=== PATIENT | male | born 1960 | race Caucasian/White ===

== ENCOUNTER → 2016-05-25 | Outpatient (CLI) | payer BC ==
[2016-05-25 14:37] LABS: Blood Urea Nitrogen 15 mg/dL (9-20); Non-African American GFR(MDRD) >60 (>60 ml/min/1.73 sqM)
== END | disposition home or self-care (01) ==
LOC: LABWHC1 14:01
PROVIDERS: ATTEND Psychiatry & Neurology Neurology
DX: R90.82 White matter disease, unspecified (principal)
CPT/HCPCS: 36415; 82565; 84520

== ENCOUNTER → 2016-05-26 | Outpatient (CLI) | payer BC ==
--- NOTE | 2016-05-26 08:10 | MR ---
EXAMINATION TYPE: MR brain wo/w con DATE OF EXAM: 05/26/2016 6:40 AM COMPARISON: NONE HISTORY: White matter changes, headache. CONTRAST: Performed utilizing 20 mL intravenous MultiHance gadolinium contrast. TECHNIQUE: Multiplanar, multisequence imaging of the brain is performed on a 3.0 Ramona magnet. Demye linating disease protocol with additional Sagittal Flair sequence was not performed. Study is perform ed within 24 hours of arrival to the hospital. FINDINGS: T2 White Matter Lesions Present : Yes Approximate Number of Lesions: Multiple scattered Locations Identified : Periventricular, subcortical, centrum semiovale Size of Largest Lesion(s): 1. 0.4 cm. Location: Subcortical right frontal lobe Sequence 501 Image 16 (axial). 2. 0.6 x 0.5 x 0.4 cm. Location: Right periventricular centrum semiovale Sequence 501 Image 24 (axi al) and Sequence 601 Image 99 (sagittal). Enhancing Lesion(s) Present: No Change from Prior: No prior study. Diffusion-weighted imaging is performed. No abnormal hyperintensity is present to suggest an acute i ntracranial infarct or acute ischemic change. There are no abnormal extra-axial fluid collections. The ventricular system and cisternal spaces are normal in size and appearance. The brain volume is age appropriate. The craniocervical junction tomasz ears within normal limits. Ventricles and sulci are prominent for the patient age. The dural venous s inuses appear patent. No abnormal enhancement is present on post contrast images. . There is a retention cyst within the ri ght maxillary sinus. Some mucosal thickening is within ethmoid air cells. Some mucosal thickening is in the right frontal sinus. Mastoid air cells are clear. The orbits appear unremarkable. IMPRESSION: 1. Multiple scattered deep white matter changes discussed above. No enhancement is evident. Differen tial would include microvascular ischemic change, multiple sclerosis, and other etiologies of gliosis . 2. Atrophy
== END | disposition home or self-care (01) ==
LOC: RADMRIMAIN 06:02
PROVIDERS: ATTEND Psychiatry & Neurology Neurology
DX: R90.89 Other abnormal findings on diagnostic imaging of central nervous system (principal); G31.9 Degenerative disease of nervous system, unspecified
CPT/HCPCS: 70553; A9577

== ENCOUNTER → 2016-07-06 | Outpatient (CLI) | payer BC ==
[2016-07-06 10:38] LABS: Basophils # (A) 0.1 k/uL (0-0.2); Basophils % (A) 1 %; CHCM 35.8; Eosinophils # (A) 0.2 k/uL (0-0.7); Eosinophils % (A) 3 %; HCT 51.1 % (39.0-53.0); HDW 3.08; HGB 17.5 gm/dL (13.0-17.5); Luc # (Auto) 0.17; Luc % (Auto) 2; Lymphocytes # (A) 2.5 k/uL (1.0-4.8); Lymphocytes % (A) 28 %; MCH 30.8 pg (25.0-35.0); MCHC 34.2 g/dL (31.0-37.0); MCV 89.8 fL (80.0-100.0); Mean Platelet Volume 7.3; Monocytes # (A) 0.5 k/uL (0-1.0); Monocytes % (A) 5 %; Neutrophils # (A) 5.5 k/uL (1.3-7.7); Neutrophils % (A) 61 %; RBC 5.69 m/uL (4.30-5.90); RDW 13.6 % (11.5-15.5); WBC (Perox) 9.16
[2016-07-06 10:45] LABS: INR 1.2 (<1.1); Partial Thromboplastin Time 25.4 sec (22.0-30.0); Prothrombin Time 11.6 sec (9.0-12.0)
[2016-07-06 10:47] LABS: Appearance,Urine Clear (Clear); Bilirubin,Urine Negative (Negative); Glucose,Urine (UA) Negative (Negative); Ketones,Urine Negative (Negative); Leukocyte Esterase,Urine Negative (Negative); Nitrite,Urine Negative (Negative); PH, Urine 5.5 (5.0-8.0); Protein,Urine Negative (Negative); Specific Gravity,Urine 1.021 (1.001-1.035); UA Billing (MACRO vs. MICRO) CHEM
[2016-07-06 10:59] LABS: Anion Gap 13 mmol/L; Blood Urea Nitrogen 14 mg/dL (9-20); Carbon Dioxide 23 mmol/L (22-30); Chloride 105 mmol/L (98-107); Glucose 150 mg/dL (74-99); Non-African American GFR(MDRD) >60 (>60 ml/min/1.73 sqM); Potassium 3.2 mmol/L (3.5-5.1); Sodium 141 mmol/L (137-145)
== END ==
LOC: LABWHC1 09:53
PROVIDERS: ATTEND Neurological Surgery
DX: Z01.812 Encounter for preprocedural laboratory examination (principal); D68.9 Coagulation defect, unspecified; G93.2 Benign intracranial hypertension
CPT/HCPCS: 36415; 80051; 81003; 82565; 82947; 84520; 85025; 85610; 85730

== ENCOUNTER 2018-04-26 23:22 | Emergency (ER) | payer BC ==
--- NOTE | 2018-04-26 23:38 | ED ---
General Adult HPI - General Stated complaint: Syncope Time Seen by Provider: 04/26/18 23:37 - History of Present Illness Initial comments: Bradford is a 57-year-old male with a history of pseudotumor cerebri for which he previously had a ENVELOPE FOLDING MACHINE ADJUSTER shunt which malfunction, patient subsequently had his ENVELOPE FOLDING MACHINE ADJUSTER shunt revised by Dr. Aguilar at an outside hospital today. Patient was discharged postoperatively and return home. reports he's been sleeping throughout the entire afternoon, she's not given him any other medications or pain medications since his procedure. reports that he was in bed, she heard him fall to the ground, she went to the room where she found him laying face down on the ground, it appears as though he had sat up in the bed and then falling to his left off of the bed. She was able to arouse him and asked if he needed help and wanted her to call 911 at which time he said team 6 would be coming, this is a reference to something he would say at work, patient was clearly confused and disoriented. decided to call 911. EMS arrived by the patient sitting, with somewhat slowed responses and confusion. Patient states that he remembers passing out, he denies any chest pain or palpitations, his only complaint this evening is a headache. reports he has not had a fever since the surgery. - Related Data Home Medications Medication Instructions Recorded Confirmed Aspirin 81 mg PO DAILY 11/22/14 11/22/14 Biotin 10 mg PO QAM 11/22/14 11/22/14 Cholecalciferol [Vitamin D3] 2,000 unit PO QAM 11/22/14 11/22/14 Desvenlafaxine Succinate [Pristiq 50 mg PO QAM 11/22/14 11/22/14 ER] Losartan/Hydrochlorothiazide 1 tab PO QAM 11/22/14 11/22/14 [Losartan-Hctz 100-25 mg Tab] Metoprolol Succinate (ER) [Toprol 100 mg PO QAM 11/22/14 11/22/14 XL] Omeprazole [PriLOSEC] 20 mg PO AC-BRKFST 11/22/14 11/22/14 Rosuvastatin [Crestor] 10 mg PO QAM 11/22/14 11/22/14 Allergies Allergy/AdvReac Type Severity Reaction Status Date / Time No Known Allergies Allergy Verified 11/22/14 09:18 Review of Systems ROS Statement: Those systems with pertinent positive or pertinent negative responses have been documented in the HPI. ROS Other: All systems not noted in ROS Statement are negative. Limitations: ROS unobtainable due to patients medical condition (Confusion) Past Medical History Past Medical History: GERD/Reflux, Hyperlipidemia, Hypertension Additional Past Medical History / Comment(s): SARCOIDOSIS (IN REMISSION) History of Any Multi-Drug Resistant Organisms: None Reported Past Surgical History: Back Surgery, Bowel Resection, Orthopedic Surgery Past Anesthesia/Blood Transfusion Reactions: Family History of Problems w/ Anesthesia, Motion Sickness Additional Past Anesthesia/Blood Transfusion Reaction / Comment(s): FATHER TAKES LONGER TO WAKE UP Smoking Status: Never smoker - Past Family History Father Family Medical History: Deep Vein Thrombosis (DVT) General Exam - General Exam Comments Initial Comments: GENERAL: Unwell-appearing gentleman HENT: Right parietal scalp with surgical incision with juan in place, no erythema or discharge , a ENVELOPE FOLDING MACHINE ADJUSTER shunt is palpable EYES: The sclera were anicteric and conjunctiva were pink and moist. Extraocular movements were intact and pupils were equal round and reactive to light. Eyelids were unremarkable. Pupils 3 mm and fixed X-ray ocular movements intact but slowed with noted horizontal nystagmus especially when looking to the right PULMONARY: Unlabored respirations. CARDIOVASCULAR: There is a regular rate and rhythm without any murmurs gallops or rubs. ABDOMEN: Soft and nontender with normal bowel sounds. SKIN: Skin is clear with no lesions or rashes and otherwise unremarkable. NEUROLOGIC: Patient is resting with his eyes closed, responds to verbal stimuli, alert to person, able to identify that he is in a hospital, recalls that he had a ENVELOPE FOLDING MACHINE ADJUSTER shunt surgery earlier in the day, somewhat confused about events leading up to the emergency department arrival Speech is slow but clear MUSCULOSKELETAL: Normal extremities with adequate strength and full range of motion. No lower extremity swelling or edema. No calf tenderness. LYMPHATICS: No significant lymphadenopathy is noted PSYCHIATRIC: Delayed, confused Limitations: no limitations Course Vital Signs 04/26/18 04/27/18 23:40 01:25 Temperature 97.7 F Pulse Rate 91 86 Respiratory 20 20 Rate Blood Pressure 114/72 112/72 O2 Sat by Pulse 94 L 95 Oximetry Medical Decision Making - Medical Decision Making Patient seen and evaluated immediately upon arrival to the emergency department , this patient had a ENVELOPE FOLDING MACHINE ADJUSTER shunt revision earlier in the day, now having syncopal episodes confusion and headache Computed tomography scan Of the head was ordered Labs were ordered Labs reviewed, and at baseline for patient, mild leukocytosis is likely reactive Computed tomography scan reveals a ENVELOPE FOLDING MACHINE ADJUSTER shunt which is not in place, took a ENVELOPE FOLDING MACHINE ADJUSTER shunt is noted to be in the parenchyma of the right frontal lobe, there is mild hydrocephalus which appears worse than previous MRI Patient to neurosurgeon Dr. Aguilar was paged Patient care was discussed with ER physician Dr Baker at [facility] who accepts transfer for neurosurgery evaluation - Lab Data Result diagrams: 04/26/18 23:52 04/26/18 23:52 Lab Results 04/26/18 04/26/18 04/26/18 Range/Units 23:52 23:52 23:52 WBC 14.1 H (3.8-10.6) k/uL RBC 5.74 (4.30-5.90) m/uL Hgb 16.9 (13.0-17.5) gm/dL Hct 50.9 (39.0-53.0) % MCV 88.6 (80.0-100.0) fL MCH 29.4 (25.0-35.0) pg MCHC 33.2 (31.0-37.0) g/dL RDW 13.6 (11.5-15.5) % Plt Count 213 (150-450) k/uL Neutrophils % 87 % Lymphocytes % 8 % Monocytes % 4 % Eosinophils % 1 % Basophils % 0 % Neutrophils # 12.3 H (1.3-7.7) k/uL Lymphocytes # 1.1 (1.0-4.8) k/uL Monocytes # 0.6 (0-1.0) k/uL Eosinophils # 0.1 (0-0.7) k/uL Basophils # 0.0 (0-0.2) k/uL PT (9.0-12.0) sec INR (<1.2) APTT (22.0-30.0) sec Sodium 139 (137-145) mmol/L Potassium 3.5 (3.5-5.1) mmol/L Chloride 109 H (98-107) mmol/L Carbon Dioxide 15 L (22-30) mmol/L Anion Gap 15 mmol/L BUN 20 (9-20) mg/dL Creatinine 0.74 (0.66-1.25) mg/dL Est GFR (CKD-EPI)AfAm >90 (>60 ml/min/1.73 sqM) Est GFR (CKD-EPI)NonAf >90 (>60 ml/min/1.73 sqM) Glucose 166 H (74-99) mg/dL Calcium 9.1 (8.4-10.2) mg/dL Magnesium 1.6 (1.6-2.3) mg/dL Total Bilirubin 1.0 (0.2-1.3) mg/dL AST 32 (17-59) U/L ALT 32 (21-72) U/L Alkaline Phosphatase 52 (38-126) U/L Total Creatine Kinase 220 H (55-170) U/L CK-MB (CK-2) 2.3 (0.0-2.4) ng/mL CK-MB (CK-2) Rel Index 1.0 Troponin I <0.012 (0.000-0.034) ng/mL Total Protein 6.9 (6.3-8.2) g/dL Albumin 3.6 (3.5-5.0) g/dL 04/26/18 Range/Units 23:52 WBC (3.8-10.6) k/uL RBC (4.30-5.90) m/uL Hgb (13.0-17.5) gm/dL Hct (39.0-53.0) % MCV (80.0-100.0) fL MCH (25.0-35.0) pg MCHC (31.0-37.0) g/dL RDW (11.5-15.5) % Plt Count (150-450) k/uL Neutrophils % % Lymphocytes % % Monocytes % % Eosinophils % % Basophils % % Neutrophils # (1.3-7.7) k/uL Lymphocytes # (1.0-4.8) k/uL Monocytes # (0-1.0) k/uL Eosinophils # (0-0.7) k/uL Basophils # (0-0.2) k/uL PT 11.9 (9.0-12.0) sec INR 1.1 (<1.2) APTT 23.6 (22.0-30.0) sec Sodium (137-145) mmol/L Potassium (3.5-5.1) mmol/L Chloride (98-107) mmol/L Carbon Dioxide (22-30) mmol/L Anion Gap mmol/L BUN (9-20) mg/dL Creatinine (0.66-1.25) mg/dL Est GFR (CKD-EPI)AfAm (>60 ml/min/1.73 sqM) Est GFR (CKD-EPI)NonAf (>60 ml/min/1.73 sqM) Glucose (74-99) mg/dL Calcium (8.4-10.2) mg/dL Magnesium (1.6-2.3) mg/dL Total Bilirubin (0.2-1.3) mg/dL AST (17-59) U/L ALT (21-72) U/L Alkaline Phosphatase (38-126) U/L Total Creatine Kinase (55-170) U/L CK-MB (CK-2) (0.0-2.4) ng/mL CK-MB (CK-2) Rel Index Troponin I (0.000-0.034) ng/mL Total Protein (6.3-8.2) g/dL Albumin (3.5-5.0) g/dL Disposition Clinical Impression: Hydrocephalus, Obstructed ENVELOPE FOLDING MACHINE ADJUSTER shunt Disposition: OTHER INSTITUTION NOT DEFINED Condition: Serious Referrals: Mal Joy MD [Primary Care Provider] - 1-2 days - Out of Hospital Transfer - Req. Specs Out of Hospital Transfer - Requested Specifics: Other Emergency Center ([facility])
[2018-04-26 23:43] VITALS: RESP 20; TEMP 97.7
[2018-04-27 00:11] LABS: Basophils % (A) 0 %; Eosinophils # (A) 0.1 k/uL (0-0.7); Eosinophils % (A) 1 %; HCT 50.9 % (39.0-53.0); HGB 16.9 gm/dL (13.0-17.5); Lymphocytes # (A) 1.1 k/uL (1.0-4.8); Lymphocytes % (A) 8 %; MCH 29.4 pg (25.0-35.0); MCHC 33.2 g/dL (31.0-37.0); MCV 88.6 fL (80.0-100.0); Mean Platelet Volume 6.5; Monocytes # (A) 0.6 k/uL (0-1.0); Monocytes % (A) 4 %; Neutrophils # (A) 12.3 k/uL (1.3-7.7); Neutrophils % (A) 87 %; Platelet Count 213 k/uL (150-450); RBC 5.74 m/uL (4.30-5.90); RDW 13.6 % (11.5-15.5); WBC 14.1 k/uL (3.8-10.6)
[2018-04-27 00:13] LABS: Creatine Kinase 220 U/L (55-170)
[2018-04-27 00:15] LABS: ALT 32 U/L (21-72); AST 32 U/L (17-59); Albumin 3.6 g/dL (3.5-5.0); Alkaline Phosphatase 52 U/L (38-126); Anion Gap 15 mmol/L; Blood Urea Nitrogen 20 mg/dL (9-20); Calcium 9.1 mg/dL (8.4-10.2); Carbon Dioxide 15 mmol/L (22-30); Chloride 109 mmol/L (98-107); Glucose 166 mg/dL (74-99); INR 1.1 (<1.2); Magnesium 1.6 mg/dL (1.6-2.3); Partial Thromboplastin Time 23.6 sec (22.0-30.0); Potassium 3.5 mmol/L (3.5-5.1); Prothrombin Time 11.9 sec (9.0-12.0); Sodium 139 mmol/L (137-145); Total Protein 6.9 g/dL (6.3-8.2)
[2018-04-27 00:27] LABS: Creatine Kinase MB 2.3 ng/mL (0.0-2.4); Troponin I <0.012 ng/mL (0.000-0.034)
--- NOTE | 2018-04-27 01:08 | CT ---
EXAMINATION TYPE: CT brain jey patel DATE OF EXAM: 04/27/2018 COMPARISON: None HISTORY: brain shunt replaced. CT DLP: 1715.2 mGycm Automated exposure control for dose reduction was used. TECHNIQUE: CT scan of the head and cervical spine are performed without contrast. FINDINGS: There is hydrocephalus. There is hypodensity in the right posterior parietal lobe adjacen t to the ventricular peritoneal shunt catheter. There is shunt catheter with the tip in the right pos terior frontal lobe parenchyma. There is no midline shift. I see no sign of intracranial hemorrhage. There are skin juan. The cervical vertebra show some straightening. There is mild degenerative disc space narrowing at C5- 6 C6-7. There is spurring of the endplates in the lower cervical spine. Facet joints are intact. Ther e is mild hypertrophic facet arthropathy in the cervical spine. Skull base is intact. There is no chaka dence of a fracture. There is 1 cm mucous retention cyst right maxillary sinus. IMPRESSION: There is right posterior parietal lobe encephalomalacia around the shunt catheter. This appears new c ompared to old MR scan of 05/26/2016. Catheter tip is not in the ventricles. Catheter tip appears to b e malpositioned. There is mild hydrocephalus that is increased compared to the old MR scan. Spondylotic mild changes in the cervical spine. No fracture seen.
[2018-04-27] MEDS ORDERED: ONDANSETRON 4 MG/2 ML VIAL IVP STA (01:15)
[2018-04-27 01:26] VITALS: BP 112/72; PULSE 86
[2018-04-27 01:55] LABS: Appearance,Urine Clear (Clear); Bilirubin,Urine Negative (Negative); Blood,Urine Negative (Negative); Color,Urine Yellow; Glucose,Urine (UA) 4+ (Negative); Ketones,Urine Trace (Negative); Leukocyte Esterase,Urine Negative (Negative); Nitrite,Urine Negative (Negative); PH, Urine 5.5 (5.0-8.0); Protein,Urine Negative (Negative); Specific Gravity,Urine 1.018 (1.001-1.035); Urobilinogen,Urine <2.0 mg/dL (<2.0)
== END 2018-04-27 02:20 | disposition other institution (70) ==
LOC: EC 23:22
DX: T85.09XA Other mechanical complication of ventricular intracranial (communicating) shunt, initial encounter (principal); G91.9 Hydrocephalus, unspecified; K21.9 Gastro-esophageal reflux disease without esophagitis; E78.5 Hyperlipidemia, unspecified; I10 Essential (primary) hypertension; Z79.82 Long term (current) use of aspirin; Z79.899 Other long term (current) drug therapy
CPT/HCPCS: 96374; 36415; 80053; 82550; 82553; 83735; 84484; 85025; 85610; 85730; 81003; 72125; 70450; 99285; J2405

== ENCOUNTER → 2019-01-19 | Outpatient (CLI) | payer BC ==
--- NOTE | 2019-01-19 12:42 | CT ---
EXAMINATION TYPE: CT brain wo con DATE OF EXAM: 01/19/2019 HISTORY: Benign intracranial hypertension. Complaint of headaches x [address] DLP: 1263 mGycm. Automated Exposure Control for Dose Reduction was Utilized. TECHNIQUE: CT scan of the head is performed without contrast. COMPARISON: CT brain April 27, 2018. MRI brain May 26, 2016 FINDINGS: There is no acute intracranial hemorrhage or midline shift identified. There is right par ietal judie hole with FISH FARMER shunt catheter terminating the level of foramen of Davis. Left frontal lobe shows linear hypointense tract likely reflecting encephalomalacia along old shunt catheter. There are slitlike ventricles on current study suggesting possible over shunting. Significant change from prio r studies is seen. Mild sulcal prominence is present. There is mucous retention cyst or polyp in the inferior right maxillary sinus partially imaged. Remainder paranasal sinuses are clear. The globes ar e intact bilaterally. IMPRESSION: Cannot exclude over shunting with slitlike ventricular system on current study. Correlat e clinically.
== END | disposition home or self-care (01) ==
LOC: RADCTMAIN 12:11
PROVIDERS: ATTEND Neurological Surgery
DX: G93.2 Benign intracranial hypertension (principal)
CPT/HCPCS: 70450

== ENCOUNTER → 2019-02-19 | Outpatient (CLI) | payer BC ==
--- NOTE | 2019-02-19 13:03 | CT ---
EXAMINATION TYPE: CT brain wo con DATE OF EXAM: 02/19/2019 COMPARISON: 01/19/2019 INDICATION: Benign intracranial hypertension DLP: 1159 mGycm, Automated exposure control for dose reduction was used. CONTRAST: None CT of the brain is performed utilizing 3 mm thick sections through the posterior fossa and 3 mm thick sections through the remaining calvarium. Study is performed within 24 hours of arrival to the hosp ital. No abnormal hyperdensity is present to suggest an acute intracranial hemorrhage. No mass lesion is evident. No acute infarcts are evident. There is a shunt catheter entering on the right with the tip near the midline. Ventricles are decompr essed. No temporal horn dilatation is evident. Third ventricle appears normal and midline. Fourth bhavya tricle is unremarkable. No hydrocephalus is evident. Significant prominence of the sulci is not evide nt. There is a retention cyst within the right maxillary sinus. Paranasal sinuses and mastoid air cells a re otherwise clear. IMPRESSIONS: 1. Exam is stable from prior examination. No ventricular dilatation is evident.
== END | disposition home or self-care (01) ==
LOC: RADCTMAIN 12:07
PROVIDERS: ATTEND Neurological Surgery
DX: G93.2 Benign intracranial hypertension (principal)
CPT/HCPCS: 70450

== ENCOUNTER → 2019-05-03 | Outpatient (CLI) | payer BC ==
--- NOTE | 2019-05-03 14:57 | CT ---
EXAMINATION TYPE: CT brain wo con DATE OF EXAM: 05/03/2019 COMPARISON: 02/19/2019 HISTORY: 58-year-old male with Headaches x 6 months. TECHNIQUE: Examination was done in axial plane without intravenous contrast. Coronal and sagittal r econstructions performed. CT DLP: 1201 mGycm Automated exposure control for dose reduction was used. FINDINGS: Right parietal approach CONVENIENCE STORE MANAGER shunt catheter. Tip is stable position along the midline just above the le tangela of the third ventricle. The lateral ventricles are flattened, unchanged from 02/19/2019. Some scattered prostatic calcifications within the carotid siphons and within the right carotid termi nus. No evidence for acute intracranial hemorrhage, acute ischemic change, mass, mass effect, midline shif t, or extra-axial fluid collection. No hydrocephalus. No effacement of cerebral sulci or basal subara chnoid cisterns. Ann-white matter differentiation is maintained. There is moderate lobulated mucosal thickening left maxillary sinus. Leftward nasal septal deviation. Mastoid air cells well pneumatized. Orbits and globes are intact. IMPRESSION: 1. Unchanged right parietal approach CONVENIENCE STORE MANAGER shunt catheter with tip at the midline. 2. The lateral ventricles remain effaced. Correlate to exclude over shunting. 3. No acute intracranial abnormality seen. 4. Moderate chronic left maxillary sinus disease.
== END | disposition home or self-care (01) ==
LOC: RADCTMAIN 13:12
PROVIDERS: ATTEND Neurological Surgery
DX: G93.2 Benign intracranial hypertension (principal); Z46.82 Encounter for fitting and adjustment of non-vascular catheter; Z98.2 Presence of cerebrospinal fluid drainage device
CPT/HCPCS: 70450

== ENCOUNTER → 2019-07-16 | Outpatient (CLI) | payer BC ==
--- NOTE | 2019-07-16 12:28 | CT ---
EXAMINATION TYPE: CT brain wo con DATE OF EXAM: 07/16/2019 COMPARISON: 05/03/2019 and 02/19/2019 HISTORY: 59-year-old male with headache and history of shunt TECHNIQUE: Examination was done in axial plane without intravenous contrast. Coronal and sagittal r econstructions performed. CT DLP: 1174 mGycm Automated exposure control for dose reduction was used. FINDINGS: There has been revision now with a left parietal approach DIRECT ENTRY MIDWIFE shunt catheter with tip at the midline. The previous right parietal DIRECT ENTRY MIDWIFE shunt catheter has been removed. Slight better visibility of the lateral ventricles which continue to remain collapsed. There is no evidence of acute intracranial hemorrhage, acute ischemic changes, mass, mass-effect, or extra-axial fluid collection. There is no effacement of cerebral sulci or basal subarachnoid cister ns. There is no hydrocephalus. There is no midline shift. Ann-white matter distinction is preserv ed. 1.6 cm polyp or mucosal retention cyst right maxillary sinus. Leftward nasal septal deviation. Orbits and globes are intact. Mastoid air cells well pneumatized. IMPRESSION: 1. Revision now with placement of a left parietal approach DIRECT ENTRY MIDWIFE shunt catheter with tip at the midline. The previous right-sided catheter has been removed. 2. The lateral ventricles remain collapsed though there is slight better visualization now.
== END | disposition home or self-care (01) ==
LOC: RADCTMAIN 11:39
PROVIDERS: ATTEND Neurological Surgery
DX: Z46.82 Encounter for fitting and adjustment of non-vascular catheter (principal); G93.2 Benign intracranial hypertension; G93.89 Other specified disorders of brain
CPT/HCPCS: 70450

== ENCOUNTER → 2020-01-08 | Outpatient (CLI) | payer BC ==
--- NOTE | 2020-01-08 14:06 | CT ---
EXAMINATION TYPE: CT brain wo con DATE OF EXAM: 01/08/2020 HISTORY: Headaches, intercranial hypertension benign CT DLP: 1135 mGycm. Automated Exposure Control for Dose Reduction was Utilized. TECHNIQUE: CT scan of the head is performed without contrast. COMPARISON: CT brain July 16, 2019 and older CTs. MRI brain May 26, 2016.. FINDINGS: 6 redemonstration of right parietal judie hole with SOIL SAMPLER shunt catheter terminating near level of the foramen of Davis with some encephalomalacia along the shunt catheter course. Stable ventricu lar decompression, ventricle size not significantly changed from most recent CT. Mild sulcal prominen ce redemonstrated. Some low-attenuation scattered throughout the white matter greatest right frontal lobe axial image 28 again seen. No acute intracranial hemorrhage or midline shift. Paranasal sinuses are clear and globes remain intact. IMPRESSION: No significant change from most recent CT study. Ventricular size stable and decompress ed.
== END | disposition home or self-care (01) ==
LOC: RADCTMAIN 12:39
PROVIDERS: ATTEND Neurological Surgery
DX: G93.5 Compression of brain (principal); G93.2 Benign intracranial hypertension
CPT/HCPCS: 70450

== ENCOUNTER 2020-03-03 07:58 | Day surgery (SDC) | payer BC ==
[~2020-03-03 07:58] MED LIST: PREMYELOGRAM MEDICATION REVIEW 1 EACH MISC PO NR
[2020-03-03] MEDS ORDERED: diazePAM 5 MG TAB PO STA (08:56)
[2020-03-03 09:31] VITALS: TEMP 97.6
[2020-03-03] MEDS ORDERED: HYDROcodone/APAP 5-325MG 1 EACH TAB PO PRN (10:30)
[2020-03-03 12:55] VITALS: RESP 16
--- NOTE | 2020-03-03 16:39 | FL ---
EXAMINATION TYPE: FL myelogram 2 or more regions DATE OF EXAM: 03/03/2020 COMPARISON: NONE HISTORY: G93.2 benign intracranial hypertension. Informed consent was obtained and all the patient's questions were answered. The L3-L4 level was loc alized under fluoroscopy. Standard sterile technique was utilized as well as appropriate local anest hesia 1% Lidocaine. Spinal needle was introduced into the thecal sac under fluoroscopic guidance and 10 mL's of Isovue-M 300 was injected. The patient tolerated the procedure well and left the [facility] ent in stable condition. CT myelography is to follow. Total fluoroscopy time 3 minutes 25 seconds Total images obtained 2 IMPRESSION: Successful myelography lumbar spine.
[2020-03-03 18:50] VITALS: BP 107/61; PULSE 82
--- NOTE | 2020-03-04 12:59 | CT ---
EXAMINATION TYPE: CT CervThorLumbar spine w con DATE OF EXAM: 03/03/2020 COMPARISON: None. HISTORY: Post myelogram. Possible leak. CT DLP: 3088 mGycm Automated exposure control for dose reduction was used. CONTRAST: Performed with IV Contrast, patient injected with 15 mL of Isovue 300. FINDINGS: Intrathecal contrast is seen throughout the cervical, thoracic, and lumbar spine, although somewhat d iminutive in the upper cervical spine. There is no evidence of abnormal intrathecal contrast extravas ation to demonstrate CSF leak. There are degenerative changes of the spine, notable at the following levels: C4-C5: Central disc osteophyte complex indents the ventral aspect of the thecal sac with mild canal s tenosis. C5-C6: Left subarticular osteophyte with mass effect on the left lateral recess. C6-C7: Posterior disc bulging with mild to moderate canal stenosis. No canal stenosis of the thoracic spine. L1-L2: Circumferential disc bulging with effacement of the ventral thecal sac. L2-L3: Circumferential disc bulging with mild canal stenosis. L3-L4: Broad-based disc bulging, with superimposed right subarticular and foraminal protrusion, with Hounsfield units which are mildly more hypodense than the adjacent disc and appear to follow the cont our of the epidural fat (13:35), with significant mass effect on the right lateral recess and severe canal stenosis. The Hounsfield units of this epidural collection are 54, which are the same as normal -appearing epidural fat at the level of L2. There is facet arthropathy of the inferior lumbar spine with varying degrees of neural foramina narro wing. No high-grade neural foraminal bony encroachment. No evidence of acute fracture or dislocation. Incidental findings: Calcified coronary artery disease. Small hiatal hernia. No abdominal aortic aneu rysm. IMPRESSION: 1. No evidence of intrathecal contrast extravasation to demonstrate CSF leak. 2. L3-L4 disc bulging with superimposed right subarticular and foraminal hypodensity with mass effect on the right lateral recess and severe canal stenosis. Findings are not definitively related to the disc, and may follow the contour and same density of the epidural fat. Differential includes superimp osed disc protrusion, asymmetric epidural fat, and epidural hematoma status post lumbar puncture. Pat ient reported being at baseline with no new or worsening symptoms on follow-up phone call by CAMDEN rouse today, 03/04/2020 at approximately 10:00 AM, making epidural hematoma less likely. If clinically r elevant, consider MRI examination for further characterization. 3. Additional findings as above. Dr. Evelina Garrido spoke with with Dr. Aurelio Zaman 03/04/2020 at 1:08 PM PM regarding findings, a nd results were acknowledged.
== END 2020-03-03 14:27 | disposition home or self-care (01) ==
LOC: RADPROMAIN 07:58
PROVIDERS: ATTEND Neurological Surgery
DX: M51.26 Other intervertebral disc displacement, lumbar region (principal); M48.061 Spinal stenosis, lumbar region without neurogenic claudication; M25.78 Osteophyte, vertebrae; M50.223 Other cervical disc displacement at C6-C7 level; M48.02 Spinal stenosis, cervical region; I25.10 Atherosclerotic heart disease of native coronary artery without angina pectoris; I25.84 Coronary atherosclerosis due to calcified coronary lesion; K44.9 Diaphragmatic hernia without obstruction or gangrene; G93.2 Benign intracranial hypertension
CPT/HCPCS: 62305; 72129; 72126; 72132; Q9967

== ENCOUNTER → 2020-03-26 | Outpatient (CLI) | payer BC ==
[2020-03-26 09:48] LABS: HCT 50.7 % (39.0-53.0); HGB 17.7 gm/dL (13.0-17.5); MCH 30.9 pg (25.0-35.0); MCHC 34.8 g/dL (31.0-37.0); MCV 88.7 fL (80.0-100.0); Mean Platelet Volume 6.9; Platelet Count 150 k/uL (150-450); RBC 5.72 m/uL (4.30-5.90); RDW 13.5 % (11.5-15.5); WBC 8.5 k/uL (3.8-10.6)
[2020-03-26 10:01] LABS: African American GFR (CKD) >90 (>60 ml/min/1.73 sqM); Anion Gap 5 mmol/L; Blood Urea Nitrogen 19 mg/dL (9-20); Carbon Dioxide 33 mmol/L (22-30); Chloride 100 mmol/L (98-107); Non-African American GFR(CKD) >90 (>60 ml/min/1.73 sqM); Potassium 3.3 mmol/L (3.5-5.1); Sodium 138 mmol/L (137-145)
== END | disposition home or self-care (01) ==
LOC: LABWHC1 09:04
PROVIDERS: ATTEND Internal Medicine Cardiovascular Disease
DX: Z01.818 Encounter for other preprocedural examination (principal); R07.9 Chest pain, unspecified
CPT/HCPCS: 36415; 80051; 82565; 84520; 85027

== ENCOUNTER → 2020-04-08 | Day surgery (SDC) | payer BC ==
[2020-04-01 15:40] VITALS: BMI 35.2
[~2020-04-08] MED LIST changes: +ALPRAZolam 0.25 MG TAB PO PRN; +ALPRAZolam 0.5 MG TAB PO PRN; +ASPIRIN 325 MG TAB PO STA; +ATORVASTATIN 80 MG TAB PO STA; +HEPARIN SODIUM 1,000 UN/ML (10ML VL) IV ONE; +HEPARIN SODIUM 1,000 UN/ML (10ML VL) ONE; +IOPAMIDOL-370 125ML BTL INJ ONE; +LIDOCAINE 1% INJ 10MG/ML (20 ML MDV) ONE; +LIDOCAINE 1% INJ 10MG/ML (20 ML MDV) SQ ONE; +NITROGLYCERIN SL TABS 0.4 MG TAB SUBLINGUAL PRN; -PREMYELOGRAM MEDICATION REVIEW 1 EACH MISC PO NR; +RX INFO: IV CONTRAST WAS GIVEN 1 EACH MISC MISCELLANE PRN; +SODIUM CHLORIDE 0.9% 1,000 ML IV ONE; +SODIUM CHLORIDE 0.9% 1,000 ML IV SCH; +SODIUM CHLORIDE 0.9% 1,000 ML in EMPTY BAG 1 BAG IV ONE; +VERAPAMIL 2.5 MG/ML 2 ML AMP ONE; +VERAPAMIL SYRINGE (5 MG/10 ML) INTRAARTER ONE; +fentaNYL (PF) 50 MCG/ML 2 ML AMP ONE
[2020-04-08 07:14] VITALS: RESP 16; TEMP 98.1
[2020-04-08 07:21] LABS: Glucose,Whole Blood 129 mg/dL (75-99)
[2020-04-08] MEDS: MIDAZOLAM 2 MG/2 ML VIAL IVP ONE ×2 (08:14→08:15)
[2020-04-08] MEDS: fentaNYL (PF) 50 MCG/ML 2 ML AMP IV ONE ×2 (08:14→08:15)
[2020-04-08 10:23] VITALS: BP 122/60; PULSE 72
[2020-04-08 11:51] LABS: Glucose,Whole Blood 122 mg/dL (75-99)
--- NOTE | 2020-04-08 11:52 | P.CARDCATH ---
Date of Procedure: 04/08/20 Preoperative Diagnosis: Chest pain, family history and calcified coronary system Postoperative Diagnosis: Mild diffuse disease involving the LAD system Procedure(s) Performed: Left heart catheterization without left ventriculography Description of Procedure: HISTORY: This patient with strong family history of ischemic heart disease has been having chest pains. Patient had a myelogram recently. It was found that patient had coronary calcification unit because of strong family history, chest pain, and calcified coronary system patient is advised to have a cardiac catheterization for definitive diagnosis. A she is advised the risks and benefits of the procedure CONSENT:I have discussed the risks, benefits and alternative therapies for the above-mentioned procedure and for both sedation/analgesia as well as necessary b lood product administration, if indicated, as they pertain to this patient. The patient has indicated understanding and acceptance of the risks and procedures discussed. PROCEDURE: Patient was brought to the lab in a fasting state. Patient was given some IV sedation. The right wrist is infiltrated with lidocaine and right artery was entered using Seldinger technique. A 6-Citizen Of [place] catheter was left in place and selective coronary arteriography was performed. Patient tolerated the procedure well. Patient went on to have stent placement of the LAD by Dr. Lazar. No immediate complications were noted . Conscious Sedation: Versed 1mg Fentanyl 50 g Duration 16minutes HEMODYNAMICS: The aortic pressure is about 130/70. SELECTIVE CORONARY ARTERIOGRAPHY: LEFT MAIN: Normal length and free of occlusive disease THE LEFT ANTERIOR DESCENDING CORONARY ARTERY: . Moderate-caliber vessel which becomes small in caliber in the distal distribution. There appears to be mild intimal disease involving the LAD and the diagonal THE LEFT CIRCUMFLEX AND IS CORONARY ARTERY: Nondominant vessel free of any occlusive disease THE RIGHT CORONARY ARTERY: . Dominant vessel giving rise good-sized PDA and PLV. Free of occlusive disease LEFT VENTRICULOGRAPHY: . Not Performed FINAL IMPRESSION: Mild disease involving the LAD and diagonal. No critical lesions PLAN: Maximum medical therapy and this factor modification PROGNOSIS: Good.
== END ==
LOC: CATHCVL 06:32
PROVIDERS: ATTEND Internal Medicine Cardiovascular Disease
DX: I25.10 Atherosclerotic heart disease of native coronary artery without angina pectoris (principal); R07.89 Other chest pain; E78.5 Hyperlipidemia, unspecified; I10 Essential (primary) hypertension; E78.00 Pure hypercholesterolemia, unspecified; Z98.2 Presence of cerebrospinal fluid drainage device; Z79.899 Other long term (current) drug therapy; Z79.84 Long term (current) use of oral hypoglycemic drugs; Z79.82 Long term (current) use of aspirin; Z86.69 Personal history of other diseases of the nervous system and sense organs; Z82.49 Family history of ischemic heart disease and other diseases of the circulatory system
CPT/HCPCS: 93454; C1769; C1894; J2250; J2001; J3010; J1644; Q9967

== ENCOUNTER → 2020-05-24 | Outpatient (CLI) | payer BC ==
--- NOTE | 2020-05-25 17:00 | MR ---
EXAMINATION TYPE: MR cervical spine wo con DATE OF EXAM: 05/24/2020 COMPARISON: CT 03/03/2020 HISTORY: Radiculopathy, cervical region, Pain in rt arm TECHNIQUE: Multiplanar, multisequence images of the cervical spine were acquired. C2-C3: No evidence for degenerative disc disease. No disc bulge/herniation or protrusion. No Canal stenosis. Foramina are patent bilaterally. C3-C4: There is some right-sided foraminal encroachment due to uncovertebral joint hypertrophy. No si gnificant spinal stenosis. Posterior extension of endplate disc complex causes minimal anterior mass effect on the thecal sac. C4-C5: Posterior extension endplate disc complex causes anterior mass effect on the thecal sac, there is moderate stenosis, some mass effect is suspected on the anterior cervical cord. There is bilatera l foraminal encroachment right greater than left due to uncovertebral joint hypertrophy and facet art hropathy. C5-C6: Posterior extension of endplate disc complex causes anterior mass effect on the thecal sac and spinal cord, moderate to severe spinal stenosis with mass effect on the left lateral recess as descr ibed prior CT report C6-C7: Posterior extension endplate disc complex causes anterior mass effect on the thecal sac. Mild spinal stenosis. There is foraminal encroachment greater on the left than on the right. C7-T1: Posterior broad-based disc bulge causes minimal anterior mass effect on the thecal sac. No sig nificant spinal stenosis. Cervical segments are intact. There is normal alignment. Cervical spinal cord is of normal signal. Craniovertebral junction relationships are within normal limits. Cervical vertebral bodies show pre served height and alignment. There is multilevel spondylosis with endplate discogenic marrow signal c hange. Loss of disc height signal is present at C4-5 and C5-6 and C6-7. IMPRESSION: Findings are similar to prior post myelographic CT. There is multilevel degenerative disc disease, sp inal stenosis, foraminal encroachment.
== END | disposition home or self-care (01) ==
LOC: RADMRIMAIN 04-14 09:00
PROVIDERS: ATTEND Orthopaedic Surgery
DX: M48.02 Spinal stenosis, cervical region (principal); M50.10 Cervical disc disorder with radiculopathy, unspecified cervical region; M19.011 Primary osteoarthritis, right shoulder; Z98.890 Other specified postprocedural states
CPT/HCPCS: 72141

== ENCOUNTER → 2020-07-15 | Outpatient (CLI) | payer BC ==
[~2020-07-15] MED LIST changes: -ALPRAZolam 0.25 MG TAB PO PRN; -ALPRAZolam 0.5 MG TAB PO PRN; -ASPIRIN 325 MG TAB PO STA; -ATORVASTATIN 80 MG TAB PO STA; +CAFFEINE-SODIUM BENZOATE 1,000 MG in SODIUM CHLORIDE 0.9% 1,000 ML IVPB NR; -HEPARIN SODIUM 1,000 UN/ML (10ML VL) IV ONE; -HEPARIN SODIUM 1,000 UN/ML (10ML VL) ONE; -IOPAMIDOL-370 125ML BTL INJ ONE; -LIDOCAINE 1% INJ 10MG/ML (20 ML MDV) ONE; -LIDOCAINE 1% INJ 10MG/ML (20 ML MDV) SQ ONE; -NITROGLYCERIN SL TABS 0.4 MG TAB SUBLINGUAL PRN; -RX INFO: IV CONTRAST WAS GIVEN 1 EACH MISC MISCELLANE PRN; -SODIUM CHLORIDE 0.9% 1,000 ML IV ONE; -SODIUM CHLORIDE 0.9% 1,000 ML IV SCH; -SODIUM CHLORIDE 0.9% 1,000 ML in EMPTY BAG 1 BAG IV ONE; +SODIUM CHLORIDE 0.9% 500 ML 500 ML in EMPTY BAG 1 BAG IV PRN; -VERAPAMIL 2.5 MG/ML 2 ML AMP ONE; -VERAPAMIL SYRINGE (5 MG/10 ML) INTRAARTER ONE; -fentaNYL (PF) 50 MCG/ML 2 ML AMP ONE
[2020-07-15 08:17] VITALS: BP 130/84; PULSE 87; RESP 16; TEMP 98.8
== END ==
LOC: PROCWHC3 07:48
PROVIDERS: ATTEND Psychiatry & Neurology Neurology
DX: T43.61 Poisoning by, adverse effect of and underdosing of caffeine (principal)
CPT/HCPCS: 96365

== ENCOUNTER → 2020-07-22 | Outpatient (CLI) | payer BC ==
[2020-07-22 09:19] LABS: Appearance,Urine Clear (Clear); Bilirubin,Urine Negative (Negative); Blood,Urine Negative (Negative); Color,Urine Yellow; Glucose,Urine (UA) 4+ (Negative); Ketones,Urine Negative (Negative); Leukocyte Esterase,Urine Negative (Negative); Nitrite,Urine Negative (Negative); Protein,Urine Trace (Negative); Specific Gravity,Urine 1.033 (1.001-1.035); Urobilinogen,Urine <2.0 mg/dL (<2.0)
--- NOTE | 2020-07-22 10:07 | XR ---
EXAMINATION TYPE: XR chest 2V DATE OF EXAM: 07/22/2020 COMPARISON: None HISTORY: 60-year-old male cervical stenosis TECHNIQUE: Frontal and lateral views FINDINGS: Right-sided PERFORMANCE REPORTER shunt catheter is present. Heart normal size. Aorta and pulmonary vasculature within n ormal limits. No consolidation or pleural effusion. IMPRESSION: No acute cardiopulmonary process.
== END | disposition home or self-care (01) ==
LOC: LABPAT 08:24
PROVIDERS: ATTEND Orthopaedic Surgery Orthopaedic Surgery of the Spine
DX: Z01.812 Encounter for preprocedural laboratory examination (principal); M48.02 Spinal stenosis, cervical region
CPT/HCPCS: 36415; 71046; 81003; 86850; 86900; 86901

== ENCOUNTER 2020-07-28 06:25 | Day surgery (SDC) | payer BC ==
[2020-07-23 08:57] VITALS: BMI 35.2
[~2020-07-28 06:25] MED LIST changes: -CAFFEINE-SODIUM BENZOATE 1,000 MG in SODIUM CHLORIDE 0.9% 1,000 ML IVPB NR; +DEXAMETHASONE SOD PHOSPHATE 4 MG/ML 1 ML VIAL IV ONE; +HYDROmorphone 0.5 MG/0.5 ML SYRINGE IVP PRN; -SODIUM CHLORIDE 0.9% 500 ML 500 ML in EMPTY BAG 1 BAG IV PRN; +ceFAZolin 1,000 MG in SODIUM CHLORIDE 0.9% IRRIGATIO 1,000 ML IRRIGATION PRN
[2020-07-28] MEDS: LACTATED RINGERS 1,000 ML IV SCH (06:55)
[2020-07-28] MEDS: ONDANSETRON 4 MG/2 ML VIAL IVP ONE ×2 (06:56→11:00)
[2020-07-28 07:04] LABS: Glucose,Whole Blood 114 mg/dL (75-99)
[2020-07-28] MEDS ORDERED: ePHEDrine SULFATE/0.9% NACL/PF 50 MG/5 ML SYRINGE IV ONE (07:26)
[2020-07-28] MEDS ORDERED: fentaNYL (PF) 50 MCG/ML 2 ML AMP ONE (07:26)
[2020-07-28] MEDS ORDERED: LIDOCAINE 1% INJ 10MG/ML (20 ML MDV) ONE (07:26)
[2020-07-28] MEDS ORDERED: MIDAZOLAM 2 MG/2 ML VIAL ONE (07:26)
[2020-07-28] MEDS ORDERED: ALBUTEROL HFA INHALER INHALATION ONE (07:26)
[2020-07-28] MEDS ORDERED: SUCCINYLCHOLINE CHLORIDE 100 MG/5 ML SYR IV ONE (07:26)
[2020-07-28] MEDS ORDERED: PROPOFOL 10 MG/ML 20 ML VIAL IV ONE (07:26)
[2020-07-28] MEDS ORDERED: THROMBIN (BOVINE) 5,000 UNIT VIAL TOPICAL ONE (08:13)
[2020-07-28] MEDS ORDERED: GELATIN SPONGE,ABSORB (LARGE) 1 EACH SPONGE MISCELLANE ONE (08:13)
[2020-07-28] MEDS ORDERED: BUPIVACAINE-EPI 0.5%-1:200,000 10 ML VIAL SQ ONE ×2 (08:13)
--- NOTE | 2020-07-28 08:35 | XR ---
EXAMINATION TYPE: XR cervical spine 1V DATE OF EXAM: 07/28/2020 COMPARISON: None HISTORY: Needle placement TECHNIQUE: Lateral cervical spine FINDINGS: There is a metallic device directed towards the C5-C6 disc level. Anterior vertebral body s purring is present C5-C6 from the inferior endplates. Patient is intubated. IMPRESSION: 1. Metallic device directed towards the C5-C6 level
[2020-07-28] MEDS ORDERED: LACTATED RINGERS 1,000 ML IV ONE (09:00)
[2020-07-28] MEDS ORDERED: HYDROmorphone 0.5 MG/0.5 ML SYRINGE IVP PRN (10:05)
[2020-07-28] MEDS ORDERED: HYDROmorphone 1 MG/ML 1 ML SYRINGE IVP PRN (10:05)
[2020-07-28] MEDS ORDERED: ACETAMINOPHEN TAB 325 MG TAB PO PRN (10:05)
[2020-07-28] MEDS ORDERED: HYDROcodone/APAP 5-325MG 1 EACH TAB PO PRN (10:05)
[2020-07-28] MEDS ORDERED: ONDANSETRON 4 MG/2 ML VIAL IVP PRN (10:05)
[2020-07-28] MEDS ORDERED: BENZOCAINE/MENTHOL LOZENG 1 EACH LOZENGE MUCOUS MEM PRN (10:05)
--- NOTE | 2020-07-28 10:13 | P.OP ---
Date of Procedure: 07/28/20 Preoperative Diagnosis: Cervical stenosis C4 5 C5 6 C6 7, herniated nucleus pulposis C4 5 C5 6 C6 7, upper extremity radiculopathy, upper extremity weakness, degenerative disc disease, neck pain Postoperative Diagnosis: Same Anesthesia: GETA Pathology: none sent Condition: stable Disposition: PACU Description of Procedure: BRIEF OPERATIVE NOTE Preoperative Diagnosis:Cervical stenosis C4 5 C5 6 C6 7, herniated nucleus pulposis C4 5 C5 6 C6 7, upper extremity radiculopathy, upper extremity weakness, degenerative disc disease, neck pain Postoperative Diagnosis:Cervical stenosis C4 5 C5 6 C6 7, herniated nucleus pulposis C4 5 C5 6 C6 7, upper extremity radiculopathy, upper extremity weakness, degenerative disc disease, neck pain Procedure: Anterior cervical decompression with discectomy and fusion C4 5 C5 6 C6 7 Placement of interbody graftC4 5 C5 6 C6 7 Application of anterior cervical plateC4 5 C5 6 C6 7 Surgeon: Dr. Paulino Rig Operator: Jolene GAONA, who is present throughout the entire the case persistence during positioning, dissection, exposure, visualization, and all crucial elements of the case as well as closure. Anesthesia: General anesthesia per Dr. Lopez Estimated blood loss: Approximately 75 mL Complications: None apparent Components implanted: K2M [place] anterior cervical plate system with Vikos interbody allograft bone graft Disposition: To recovery room in good stable condition. Plan for overnight stay 1 night in Hospital OPERATIVE INDICATIONS The patient has had long-standing issues in their neck and upper extremities. He's been having significant worsening in his neck and head his upper extremities particularly on the right side. He has been having some evidence of weakness toward the right upper extremity and radiculopathy which correlated well with findings cervical spine with severe cervical stenosis at C4 5 C5 6 and C6 7 with disc herniation at those levels. The patient has been through conservative treatment. He is not having any prolonged benefit despite aggressive conservative treatment and we discussed other treatment options including surgical intervention. We discussed various treatment options including surgery, and the patient wishes to proceed with surgery We discussed the risk, patient's alternatives and benefits of surgery including but not li mited to, risk of bleeding risk of infection, risk of need for further surgery, risk of decreased, loss of motion, muscle function, malunion nonunion, hardware failure, nerve damage, paralysis, heart attack, and . OPERATIVE SUMMARY After discussing all the risks, patient alternatives and benefits at length, the patient elected to proceed with surgical intervention, signed informed consent, and presented for their procedure. The patient was seen and examined in the preoperative holding area and the surgical site was marked. The patient was given antibiotics and brought to the operating room. The patient was positioned on the operating room table in a supine position being careful to pad any bony prominences and pressure points. The patient was sedated and intubated by anesthesia in standard fashion. Once the airway and C- spine were stabilized the patient's arms were padded and tucked at her side, with her shoulders gently taped. The head was placed in a donut pad with the n juan antonio in good neutral alignment and position. We were careful to maintain the patient's cervical spine and good neutral alignment and position throughout. The patient was prepped and draped in a normal standard fashion. An appropriate timeout and keystone protocol performed. We were able to proceed with the surgery. The local wound area was infiltrated with local anesthetic. An incision was made transversely approximately 2-1/2 cm over the appropriate levels at C5. Dissection was taken down subcutaneously to the level of the platysma which was split in line with its fibers. Dissection was taken with a carotid approach, with the trachea and esophagus medial and the carotid sheath laterally. We dissected down to the anterior surface of the vertebral bodies C4 5 C5 6 C6 7. Intraoperative x-ray was taken which showed a marker at the appropriate level at C5 6. With the appropriate level positively confirmed, we were able to proceed with discectomy at the appropriate levels. I started first at C4 5 and then moved to C5 6 and then the C6 7. All of the operative levels were exposed appropriately. The patient had all their twitches back, and there was no evidence of recurrent laryngeal issue. The wound was copiously irrigated and suctioned dry as had been done periodically throughout the case. There were large anterior cervical osteophytes particularly at C5 6 and C6 7 taken down with a rongeur. At the appropriate level/levels, starting at C4 5 and then removing the C5 6 and C6 7 I established an annulotomy with an 11 blade scalpel. A discectomy was performed with a combination of pituitary rongeurs, curettes, a high-speed bur, and Kerrison rongeurs. The posterior longitudinal ligament was taken down as were any posterior osteophytes. This gave good central and bilateral foraminal decompression. There is no evidence of any dural tear or leak. The endplates were prepared with a high-speed bur. With the endplates in good parallel position, I was able to size for the appropriate size interbody graft. The wound was irrigated and suctioned dry the graft was prepared and malleted into position. It had good alignment and position with the anterior surface flush with the anterior surface of the vertebral bodies. This was done similarly the appropriate levels. With the grafts intact, I was able to measure and contour and appropriate sized plate. The plate was positioned at the midline over the appropriate levels from C4 to C7. Screw holes were established with a hand drill and drill guide. Screws were placed in good alignment and position with excellent bony purchase. They were seated under the locking device. The construct was checked and found to be stable. Intraoperative x-ray was taken which showed good alignment and position of the implants at the appropriate levels. There was no evidence of any dural tear or leak. Good hemostasis was maintained. The wound was copiously irrigated and suctioned dry as had been done periodically throughout the case. The platysma was closed with absorbable suture. The subcutaneous tissue was closed. The subcuticular tissue was closed with absorbable suture. The wound was cleaned and dried and dressed appropriately. A soft cervical collar was placed appropriately. The patient was woken up by anesthesia, extubated, transferred back gently to their hospital bed and brought to the recovery room in good stable condition. The patient will be admitted to the hospital for appropriate postoperative care, medical management and monitoring. We will continue to follow them closely about the postoperative course.
[2020-07-28 10:33] LABS: Glucose,Whole Blood 175 mg/dL (75-99)
--- NOTE | 2020-07-28 11:06 | XR ---
EXAMINATION TYPE: XR cervical spine 1V DATE OF EXAM: 07/28/2020 COMPARISON: 07/28/2020 HISTORY: Postcervical fusion TECHNIQUE: Crosstable lateral cervical spine FINDINGS: There is an anterior cervical fusion with disc spacers between C4-C7. Patient is intubated. IMPRESSION: 1. Status post anterior cervical fusion C4-C7.
[2020-07-28] MEDS: SODIUM CHLORIDE 0.9% 1,000 ML IV SCH (12:37)
[2020-07-28 12:42] LABS: Glucose,Whole Blood 178 mg/dL (75-99)
[2020-07-28 17:23] LABS: Glucose,Whole Blood 147 mg/dL (75-99)
[2020-07-28] MEDS: INSULIN ASPART (NovoLOG) 100 UNIT/ML VIAL SQ SCH ×2 (17:33→20:49)
[2020-07-28 20:39] LABS: Glucose,Whole Blood 136 mg/dL (75-99)
[2020-07-28 20:56] VITALS: RESP 16
[2020-07-29] MEDS: LACTATED RINGERS 1,000 ML IV SCH (02:43)
[2020-07-29] MEDS: SODIUM CHLORIDE 0.9% 1,000 ML IV SCH (02:43)
[2020-07-29 05:10] VITALS: BP 133/75; PULSE 95; TEMP 98.6
[2020-07-29 07:08] LABS: Glucose,Whole Blood 118 mg/dL (75-99)
[2020-07-29] MEDS ORDERED: PANTOPRAZOLE 40 MG TABLET PO SCH (07:30)
[2020-07-29] MEDS: INSULIN ASPART (NovoLOG) 100 UNIT/ML VIAL SQ SCH (08:05)
[2020-07-29] MEDS ORDERED: LOSARTAN 50 MG TAB PO SCH (09:00)
[2020-07-29] MEDS ORDERED: ATORVASTATIN 20 MG TAB PO SCH (09:00)
[2020-07-29] MEDS ORDERED: SENNOSIDES-DOCUSATE SODIUM 1 EACH TAB PO SCH (09:00)
[2020-07-29] MEDS ORDERED: ASPIRIN 81 MG PO SCH (09:00)
[2020-07-29] MEDS ORDERED: DESVENLAFAXINE SUCCINATE 50 MG TAB.ER.24H PO SCH (09:00)
[2020-07-29] MEDS ORDERED: METOPROLOL SUCCINATE (ER) 100 MG TAB.ER.24H PO SCH (09:00)
[2020-07-29] MEDS ORDERED: CHOLECALCIFEROL 25 MCG (1000 IU) TABLET PO SCH (09:00)
--- NOTE | 2020-07-29 10:31 | P.DS ---
Providers Expected date of discharge: 07/29/20 Attending physician: Ankit Paulino Primary care physician: Mal Joy MD Hospital Course: This is a 60-year-old male who was admitted on 07/28/20 after undergoing an anterior cervical decompression discectomy and fusion C4-5 C5-6 C6-7, placement of interbody graft C4-5 C5-6 C6-7, application of anterior cervical plate C4-5 C5-6 C6-[address] Paulino. Patient was seen pre-operatively by Dr. Joy and cleared for surgery. Today is post-operative day #1. The patient is admitted to [facility] following the procedure. The procedure is performed without complication or sequelae. The patient is doing well postoperatively. Vital signs are stable. The patient is seen and examined bedside this morning. The patient states he is doing very well and is comfortable. He has been up ambulating to the bathroom with his cane. He is voiding without issues. He has not yet had a bowel movement postoperatively, he is passing gas. He is tolerating his diet well and is tolerating fluids well. He notes mild discomfort in the neck although this is tolerable. He still believes he is able to eat and drink without issues. He is able to move his bilateral upper extremities without issue. Prophylactic post- operative antibiotics are complete. Patient denies chest pain, shortness of breath, nausea, vomiting, fevers, chills. He is overall doing well in is comfortable being discharged home today. On examination, the patient is sitting up in bed in no apparent distress. He is alert and oriented 3. A soft collar is in place. On inspection of his anterior neck, there is a clean, dry, intact dressing in place with no bleeding or drainage the dressing. There is no erythema, warmth, drainage. No signs of infection. Patient has good active and passive range of motion of his upper bilateral extremities. Good strength and range of motion of his bilateral upper extremities. No acute change in neurologic status. Bilateral upper extremities are warm and well perfused with brisk capillary refill. The patient is discharged to home today in good condition. Please see discharge orders. Please refer to the med rec for accurate list of medications. Plan - Discharge Summary Discharge Rx Participant: Yes New Discharge Prescriptions: New HYDROcodone/APAP 5-325MG [[place] 5] 1 each PO Q6HR PRN #28 tab PRN Reason: Pain No Action Omeprazole [PriLOSEC] 20 mg PO DAILY Aspirin 81 mg PO DAILY Rosuvastatin [Crestor] 10 mg PO DAILY Metoprolol Succinate (ER) [Toprol XL] 100 mg PO DAILY Cholecalciferol [Vitamin D3] 4,000 unit PO QAM Desvenlafaxine Succinate [Pristiq] 50 mg PO DAILY Dapagliflozin/Metformin HCl [Xigduo Xr 10 mg-1,000 mg Tab] 1 each PO DAILY Losartan Potassium [Cozaar] 100 mg PO DAILY Discharge Medication List Aspirin 81 mg PO DAILY 11/22/14 [History] Cholecalciferol [Vitamin D3] 4,000 unit PO QAM 11/22/14 [History] Metoprolol Succinate (ER) [Toprol XL] 100 mg PO DAILY 11/22/14 [History] Omeprazole [PriLOSEC] 20 mg PO DAILY 11/22/14 [History] Rosuvastatin [Crestor] 10 mg PO DAILY 11/22/14 [History] Dapagliflozin/Metformin HCl [Xigduo Xr 10 mg-1,000 mg Tab] 1 each PO DAILY 02/20/20 [History] Desvenlafaxine Succinate [Pristiq] 50 mg PO DAILY 02/20/20 [History] Losartan Potassium [Cozaar] 100 mg PO DAILY 07/23/20 [History] HYDROcodone/APAP 5-325MG [[place] 5] 1 each PO Q6HR PRN #28 tab 07/28/20 [Rx] Follow up Appointment(s)/Referral(s): Ankit Paulino DO [Doctor of Osteopathic Medicine] - 2 Weeks Patient Instructions/Handouts: *Surgery [facility] - ([facility]) Cervical Surgery Discharge Instructions, Hydrocodone/Acetaminophen (By mouth) Activity/Diet/Wound Care/Special Instructions: Keep site clean. May shower with waterproof Tegaderm intact. Do not soak in a tub. After 72 hours postoperatively, patient May remove dressing and then may shower with area uncovered. Leave Steri-Strips intact and allow them to fray off on their own. May ambulate as tolerated. Avoid heavy or rigorous activity. No repetitive bending twisting or lifting. No overhead work. Discharge Disposition: HOME SELF-CARE
== END 2020-07-29 12:22 | disposition home or self-care (01) ==
LOC: OR 06:25 → 5NMEDONC 10:09 → OR 07-29 12:22
PROVIDERS: ATTEND Orthopaedic Surgery Orthopaedic Surgery of the Spine
DX: M50.121 Cervical disc disorder at C4-C5 level with radiculopathy (principal); M50.10 Cervical disc disorder with radiculopathy, unspecified cervical region; M48.02 Spinal stenosis, cervical region; E11.9 Type 2 diabetes mellitus without complications; K21.9 Gastro-esophageal reflux disease without esophagitis; F32.9 Major depressive disorder, single episode, unspecified; E78.5 Hyperlipidemia, unspecified; I10 Essential (primary) hypertension; D86.9 Sarcoidosis, unspecified; E03.9 Hypothyroidism, unspecified; Z97.3 Presence of spectacles and contact lenses; Z98.890 Other specified postprocedural states; Z83.3 Family history of diabetes mellitus; Z82.49 Family history of ischemic heart disease and other diseases of the circulatory system; G40.909 Epilepsy, unspecified, not intractable, without status epilepticus; Z96.89 Presence of other specified functional implants; Z79.84 Long term (current) use of oral hypoglycemic drugs; Z79.52 Long term (current) use of systemic steroids; Z79.82 Long term (current) use of aspirin; Z79.899 Other long term (current) drug therapy
CPT/HCPCS: 84132; 87635; 72020; 22551; 22552 ×2; 22845; 20931; C1713 ×2; C1762 ×2; J0690 ×2; J2405; 36415; 86850; 86900; 86901

== ENCOUNTER → 2020-10-27 | Outpatient (CLI) | payer BC ==
--- NOTE | 2020-10-28 07:41 | CT ---
EXAMINATION TYPE: CT brain wo con DATE OF EXAM: 10/27/2020 COMPARISON: 01/08/2020 HISTORY: Idiopathic normal pressure hydrocephalus, headaches CT DLP: [address] of the brain was performed. Again noted is right parietal judie hole with the ventriculoperitoneal shunt in place unchanged in pos ition with its distal tip in the region of the right lateral ventricle. There is no evidence for hydr ocephalus. The ventricles, basal cisterns and sulci overlying the cerebral convexities demonstrate mild enlargem ent. There is no evidence for intracranial hemorrhage or sulcal effacement. There is decreased attenuation about the periventricular white matter and deep white matter of both c erebral hemispheres, compatible with chronic small vessel ischemia. Differential diagnosis does inclu de demyelination. No mass effects are seen.No midline shift. Osseous calvarium is intact. If symptoms persist consider MRI. IMPRESSION: 1. Age related atrophic and chronic small vessel ischemic change without acute intracranial process s een at this time.
== END | disposition home or self-care (01) ==
LOC: RADCTMAIN 16:29
PROVIDERS: ATTEND Psychiatry & Neurology Neurology
DX: I67.82 Cerebral ischemia (principal); G31.9 Degenerative disease of nervous system, unspecified
CPT/HCPCS: 70450

== ENCOUNTER → 2021-08-24 | Outpatient (CLI) | payer BC ==
[2021-08-24 18:13] LABS: ALT 153 U/L (10-49); AST 59 U/L (14-35); African American GFR (CKD) 116.1 (60.0-200.0); Alkaline Phosphatase 90 U/L (41-126); BUN/Creat Ratio 25.03 Ratio (12.00-20.00); Blood Urea Nitrogen 18.9 mg/dL (9.0-27.0); C Reactive Protein <0.30 mg/dL (0.00-0.80); Calcium 9.6 mg/dL (8.7-10.3); Chloride 99 mmol/L (96-109); Globulin 2.8 g/dL (1.6-3.3); Glucose 227 mg/dL (70-110); Non-African American GFR(CKD) 100.1 (60.0-200.0); Potassium 3.5 mmol/L (3.5-5.5); Sodium 137 mmol/L (135-145); Total Protein 6.8 g/dL (6.2-8.2)
== END | disposition home or self-care (01) ==
LOC: LABWHC1 11:21
PROVIDERS: ATTEND Internal Medicine Critical Care Medicine
DX: D86.9 Sarcoidosis, unspecified (principal)
CPT/HCPCS: 36415; 80053; 82164; 85652; 86140

== ENCOUNTER → 2021-09-02 | Outpatient (CLI) | payer BC ==
[2021-09-02 14:11] LABS: African American GFR (CKD) >90 (>60 ml/min/1.73 sqM); Blood Urea Nitrogen 21 mg/dL (9-20); Non-African American GFR(CKD) >90 (>60 ml/min/1.73 sqM)
--- NOTE | 2021-09-02 14:49 | CT ---
EXAMINATION TYPE: CT chest w con DATE OF EXAM: 09/02/2021 COMPARISON: Chest x-ray July 22, 2020 HISTORY: Sarcoidosis CT DLP: 744 mGycm. Automated Exposure Control for Dose Reduction was Utilized. TECHNIQUE: CT scan of the thorax is performed following with IV Contrast, patient injected with 100 mL of Isovue 300. FINDINGS: LUNGS: The lungs are grossly clear, there is no concerning parenchymal mass or nodule identified. F ocal linear and nodular fibrotic change in the medial right lung base coronal image 56 is noted. Ther e is no pleural effusion or pneumothorax seen. The tracheobronchial tree is patent. MEDIASTINUM: There are no greater than 1 cm hilar or mediastinal lymph nodes. No cardiomegaly or pe ricardial effusion is seen. Moderate to severe three-vessel coronary artery calcification is seen wh ich is noted risk factor for coronary artery disease. There is 1.4 cm low dense right thyroid nodule with superior round calcification coronal image 40 that warrants follow-up if this is not known findi ng. Bovine type arch is seen which is normal variant. OTHER: Moderate to severe right lateral spurring in the mid to lower thoracic spine is present. Visua lized liver is diffusely low dense suggesting fatty infiltration. Right anterior subcutaneous LABOR TRAINING MANAGER shun t catheter redemonstrated. IMPRESSION: 1. Mild focal fibrosis medial right lung base otherwise no significant acute or chronic pulmonary pro cess. No abnormal thoracic adenopathy noted. 2. There is greater than 1.0 cm partially calcified lower pole right thyroid nodule. Advise dedicated thyroid ultrasound to further evaluate and characterize if this is not known finding.
== END | disposition home or self-care (01) ==
LOC: RADCTMAIN 13:35
PROVIDERS: ATTEND Internal Medicine Critical Care Medicine
DX: E04.1 Nontoxic single thyroid nodule (principal); J84.10 Pulmonary fibrosis, unspecified
CPT/HCPCS: 82565; 84520; 71260; 36415; Q9967

== ENCOUNTER → 2021-10-02 | Outpatient (CLI) | payer BC ==
[2021-10-02 14:36] LABS: HCT 48.5 % (39.6-50.0); HGB 16.6 g/dL (13.0-17.0); MCH 31.1 pg (27.0-32.0); MCHC 34.2 g/dL (32.0-37.0); Mean Platelet Volume 9.4 fL (9.5-12.2); NRBC Per 100 WBC 0 /100 WBCS (0.0-0.0); Platelet Count 127 X 10*3/uL (140-440); RBC 5.33 X 10*6/uL (4.40-5.60); RDW 13.9 % (11.5-14.5); WBC 11.25 X 10*3/uL (4.50-10.00)
[2021-10-02 15:11] LABS: T4, Free (Free Thyroxine) 1.01 ng/dL (0.800-1.800)
== END | disposition home or self-care (01) ==
LOC: LABWHC1 08:32
PROVIDERS: ATTEND Psychiatry & Neurology Neurology
DX: E04.1 Nontoxic single thyroid nodule (principal); Z79.899 Other long term (current) drug therapy
CPT/HCPCS: 36415; 82977; 84439; 84443; 84450; 84460; 85027

== ENCOUNTER → 2021-10-28 | Outpatient (CLI) | payer BC ==
[2021-10-28 14:16] LABS: Basophils # (A) 0.04 X 10*3/uL (0.00-0.10); Basophils % (A) 0.5 %; Eosinophils # (A) 0.09 X 10*3/uL (0.04-0.35); Eosinophils % (A) 1.2 %; HGB 14.9 g/dL (13.0-17.0); Immature Grans, Automated 0.3 %; Lymphocytes # (A) 2.45 X 10*3/uL (0.90-5.00); Lymphocytes % (A) 33.6 %; MCH 29.9 pg (27.0-32.0); MCHC 33.1 g/dL (32.0-37.0); MCV 90.2 fL (80.0-97.0); Mean Platelet Volume 10.4 fL (9.5-12.2); Monocytes # (A) 0.63 X 10*3/uL (0.20-1.00); Monocytes % (A) 8.6 %; NRBC Per 100 WBC 0 /100 WBCS (0.0-0.0); Neutrophils # (A) 4.07 X 10*3/uL (1.80-7.70); Neutrophils % (A) 55.8 %; Platelet Count 162 X 10*3/uL (140-440); RBC 4.99 X 10*6/uL (4.40-5.60); RDW 13.3 % (11.5-14.5)
[2021-10-28 14:40] LABS: Total Bilirubin 0.9 mg/dL (0.30-1.20)
== END | disposition home or self-care (01) ==
LOC: LABWHC1 09:54
PROVIDERS: ATTEND Psychiatry & Neurology Neurology
DX: Z79.899 Other long term (current) drug therapy (principal)
CPT/HCPCS: 36415; 82247; 82977; 84450; 84460; 85025

== ENCOUNTER → 2021-11-06 | Outpatient (CLI) | payer BC | END | disposition home or self-care (01) | LOC: LABWHC1 09:23 | PROVIDERS: ATTEND Psychiatry & Neurology Neurology | DX: Z79.899 Other long term (current) drug therapy (principal) | CPT/HCPCS: 36415; 82140 ==

== ENCOUNTER → 2021-12-14 | Outpatient (CLI) | payer BC ==
--- NOTE | 2021-12-14 15:48 | US ---
EXAMINATION TYPE: US thyroid st tissue head/neck DATE OF EXAM: 12/14/2021 COMPARISON: NONE CLINICAL HISTORY: E04.1 SINGLE THYROID NODULE. GLAND SIZE: Right Lobe: 5.2 x 2.1 x 1.7 cm Overall Parenchyma: enlarged, homogeneous Left Lobe: 5.0 x 1.8 x 2.0 cm Overall Parenchyma: enlarged, homogeneous Isthmus Thickness: 0.5 cm NODULES RIGHT: # of nodules measured on right: 1 1. 2.3 X 1.1 x 2.0 cm, lower mid, mixed cystic and solid, isoechoic nodule, which is wider than bernabe l, with defined margins, without echogenic foci. Prior size: no previous imaging Bilateral neck scanned, no evidence of lymphadenopathy. IMPRESSION: 1. No suspicious nodules. 2017 ACR TI-RADS LEVEL: TR-RADS 2 - Not Suspicious: No FNA *Highest TI-RADS level nodule reported
== END | disposition home or self-care (01) ==
LOC: RADUSWWP 15:23
PROVIDERS: ATTEND Family Medicine
DX: E04.1 Nontoxic single thyroid nodule (principal)
CPT/HCPCS: 76536

== ENCOUNTER → 2022-01-08 | Outpatient (CLI) | payer BC ==
[2022-01-08 19:51] LABS: ALT 54 U/L (10-49); AST 70 U/L (14-35); GGT 159 U/L (0-73)
== END | disposition home or self-care (01) ==
LOC: LABWHC1 11:12
PROVIDERS: ATTEND Psychiatry & Neurology Neurology
DX: Z79.899 Other long term (current) drug therapy (principal)
CPT/HCPCS: 36415; 82977; 84450; 84460

== ENCOUNTER 2022-03-29 12:23 | Day surgery (SDC) | payer BC ==
[2022-03-29 12:45] VITALS: RESP 16; TEMP 97.6
[2022-03-29 12:53] LABS: Glucose,Whole Blood 134 mg/dL (70-110)
[2022-03-29 13:38] VITALS: BP 133/77; PULSE 78
--- NOTE | 2022-03-29 13:55 | US ---
ULTRASOUND GUIDED FNA THYROID BIOPSY: CLINICAL HISTORY: Right thyroid nodule FINDINGS: The procedure was explained to the patient. The risks, complications, benefits and alternatives were discussed and any questions were answered. Informed consent was obtained. Patient was placed supin e on the ultrasound table and prepped and draped in the usual sterile fashion. Utilizing a 25 gauge needle, five passes were made into the requested right thyroid nodule. Patient was stable throughout the procedure. Pathology is pending. All elements of maximal barrier technique were utilized. IMPRESSION: 1. Successful ultrasound guided FNA thyroid biopsy.
== END 2022-03-29 13:39 | disposition home or self-care (01) ==
LOC: RADPROMAIN 12:23
PROVIDERS: ATTEND Otolaryngology
DX: E04.1 Nontoxic single thyroid nodule (principal)
CPT/HCPCS: 10005; 88173; 88305

== ENCOUNTER → 2022-08-09 | Outpatient (CLI) | payer BC ==
[2022-08-09 15:32] LABS: Basophils # (A) 0.04 X 10*3/uL (0.00-0.10); Basophils % (A) 0.6 %; Eosinophils # (A) 0.12 X 10*3/uL (0.04-0.35); Eosinophils % (A) 1.8 %; HCT 50.1 % (39.6-50.0); HGB 16.8 g/dL (13.0-17.0); Immature Grans, Automated 0.1 %; Lymphocytes # (A) 2.58 X 10*3/uL (0.90-5.00); Lymphocytes % (A) 37.8 %; MCH 29.7 pg (27.0-32.0); MCHC 33.5 g/dL (32.0-37.0); MCV 88.7 fL (80.0-97.0); Mean Platelet Volume 10.1 fL (9.5-12.2); Monocytes # (A) 0.53 X 10*3/uL (0.20-1.00); Monocytes % (A) 7.8 %; NRBC Per 100 WBC 0 /100 WBCS (0.0-0.0); Neutrophils # (A) 3.55 X 10*3/uL (1.80-7.70); Neutrophils % (A) 51.9 %; Platelet Count 138 X 10*3/uL (140-440); RBC 5.65 X 10*6/uL (4.40-5.60); RDW 13.7 % (11.5-14.5); WBC 6.83 X 10*3/uL (4.50-10.00)
[2022-08-09 16:23] LABS: ALT 56 U/L (10-49); AST 59 U/L (14-35); GGT 113 U/L (0-73)
== END | disposition home or self-care (01) ==
LOC: LABWHC1 09:13
PROVIDERS: ATTEND Psychiatry & Neurology Neurology
DX: Z79.899 Other long term (current) drug therapy (principal)
CPT/HCPCS: 36415; 82977; 84450; 84460; 85025

== ENCOUNTER → 2022-09-07 | Outpatient (CLI) | payer BC ==
[2022-09-07 14:57] LABS: Basophils # (A) 0.04 X 10*3/uL (0.00-0.10); Basophils % (A) 0.5 %; Eosinophils # (A) 0.12 X 10*3/uL (0.04-0.35); Eosinophils % (A) 1.6 %; HCT 51.2 % (39.6-50.0); HGB 17.3 g/dL (13.0-17.0); Immature Grans, Automated 0.3 %; Lymphocytes # (A) 2.97 X 10*3/uL (0.90-5.00); Lymphocytes % (A) 38.6 %; MCH 30.2 pg (27.0-32.0); MCHC 33.8 g/dL (32.0-37.0); MCV 89.5 fL (80.0-97.0); Monocytes # (A) 0.58 X 10*3/uL (0.20-1.00); Monocytes % (A) 7.5 %; NRBC Per 100 WBC 0 /100 WBCS (0.0-0.0); Neutrophils # (A) 3.97 X 10*3/uL (1.80-7.70); Neutrophils % (A) 51.5 %; Platelet Count 141 X 10*3/uL (140-440); RBC 5.72 X 10*6/uL (4.40-5.60); RDW 13.8 % (11.5-14.5)
[2022-09-07 16:18] LABS: ALT 43 U/L (10-49); AST 52 U/L (14-35); African American GFR (CKD) 107.1 (60.0-200.0); Albumin 4.2 g/dL (3.8-4.9); Alkaline Phosphatase 96 U/L (41-126); BUN/Creat Ratio 13.98 Ratio (12.00-20.00); Blood Urea Nitrogen 12.6 mg/dL (9.0-27.0); Calcium 9.3 mg/dL (8.7-10.3); Carbon Dioxide 25.2 mmol/L (20.0-27.5); Chloride 105 mmol/L (96-109); Chol/HDL Ratio 4.87 Ratio; Creatine Kinase 350 U/L (35-257); Glucose 132 mg/dL (70-110); LDL Cholesterol,Calculated 92.5 mg/dL (0.0-131.0); Non-African American GFR(CKD) 92.4 (60.0-200.0); Potassium 4.1 mmol/L (3.5-5.5); Sodium 142 mmol/L (135-145); Total Protein 7.2 g/dL (6.2-8.2)
== END | disposition home or self-care (01) ==
LOC: LABWHC1 08:01
PROVIDERS: ATTEND Family Medicine
DX: Z00.00 Encounter for general adult medical examination without abnormal findings (principal); Z12.5 Encounter for screening for malignant neoplasm of prostate; E78.5 Hyperlipidemia, unspecified
CPT/HCPCS: 36415; 80053; 80061; 82550; 84153; 84443; 85025

== ENCOUNTER → 2022-10-18 | Outpatient (CLI) | payer BC ==
--- NOTE | 2022-10-18 15:15 | US ---
EXAMINATION TYPE: US thyroid st tissue head/neck DATE OF EXAM: 10/18/2022 COMPARISON: NONE CLINICAL INDICATION: Male, 62 years old with history of E04.1 NONTOXIC SINGLE THYROID NODULE; f/u exa m GLAND SIZE: Right Lobe: 4.8 x 1.8 x 2.3 cm Overall Parenchyma: heterogenous Left Lobe: 4.7 x 1.9 x 2.5 cm Overall Parenchyma: homogeneous Isthmus Thickness: 0.7 cm NODULES RIGHT: # of nodules measured on right: 1 1. 1.3 X 0.9 x 1.0 cm, mid, solid or almost completely solid, hyperechoic nodule, which is wider th an tall, with smooth margins, without echogenic foci. Prior size: 2.2 x 2.0 x 1.1 cm LEFT: # of nodules measured on left: 0 ISTHMUS: # of nodules measured in the isthmus: 0 Bilateral neck scanned, no evidence of lymphadenopathy. IMPRESSION: Nonspecific right thyroid lobe nodule is smaller in size versus prior examination. No new nodules see n.
== END | disposition home or self-care (01) ==
LOC: RADUSWWP 14:18
PROVIDERS: ATTEND Otolaryngology
DX: E04.1 Nontoxic single thyroid nodule (principal)
CPT/HCPCS: 76536

== ENCOUNTER → 2022-12-13 | Outpatient (CLI) | payer BC ==
[2022-12-13 15:35] LABS: Basophils # (A) 0.03 X 10*3/uL (0.00-0.10); Basophils % (A) 0.4 %; Eosinophils # (A) 0.09 X 10*3/uL (0.04-0.35); Eosinophils % (A) 1.2 %; HCT 50.3 % (39.6-50.0); HGB 17.2 d/dL (13.0-17.0); Lymphocytes # (A) 2.49 X 10*3/uL (0.90-5.00); Lymphocytes % (A) 33.3 %; MCH 30.4 pg (27.0-32.0); MCHC 34.2 d/dL (32.0-37.0); MCV 88.9 FL (80.0-97.0); Mean Platelet Volume 10.2 FL (9.5-12.2); Monocytes # (A) 0.59 X 10*3/uL (0.20-1.00); Monocytes % (A) 7.9 %; NRBC Per 100 WBC 0 X 10*3/uL (0.00-0.01); Neutrophils # (A) 4.25 X 10*3/uL (1.80-7.70); Neutrophils % (A) 56.9 %; Platelet Count 147 X 10*3/uL (140-440); RBC 5.66 X 10*6/uL (4.40-5.60); RDW 13.6 % (11.5-14.5); WBC 7.47 X 10*3/uL (4.50-10.00)
[2022-12-13 20:23] LABS: ALT 41 U/L (10-49); AST 47 U/L (14-35); GGT 86 U/L (0-73)
== END | disposition home or self-care (01) ==
LOC: LABWHC1 11:35
PROVIDERS: ATTEND Psychiatry & Neurology Neurology
DX: Z51.81 Encounter for therapeutic drug level monitoring (principal); Z79.899 Other long term (current) drug therapy
CPT/HCPCS: 36415; 82977; 84450; 84460; 85025

== ENCOUNTER → 2023-01-24 | Outpatient (CLI) | payer BC ==
--- NOTE | 2023-01-26 12:42 | MR ---
EXAMINATION TYPE: MR brain wo/w con DATE OF EXAM: 01/24/2023 7:56 PM CLINICAL INDICATION:Male, 62 years old with history of R51 HEADACHE; PHH, Headaches, Neurosarcoid COMPARISON: 06/23/2021 TECHNIQUE: Multi planar, multi sequence imaging was performed through the brain including: T1, T2, In version recovery, susceptibility weighted imaging and gradient echo imaging and Diffusion weighted im aging. The patient was then given intravenous contrast and multi planar, T1 fat-saturation images wer e obtained. IV Contrast: 11 cc Gadavist FINDINGS: Limited evaluation of the posterior cranial fossa due to metallic artifact. Posterior approach Ventri culostomy catheter with tip terminating near midline. Mild white matter changes around the tubing. Mi ld cerebral atrophy is questioned dilation of the ventricles. Scattered high T2 signal white matter c hanges throughout the brain. Diffusion-weighted imaging shows no evidence of restricted diffusion to suggest acute/subacute infarct. Intracranial arterial flow voids are maintained. Midline structures s how no abnormality. The susceptibility weighted images do not reveal any evidence for micro-hemorrhag e. After administration of gadolinium, no abnormal enhancement is seen. The bone marrow signal is within normal limits. Paranasal sinuses and mastoid air cells: Mild mucosal thickening right maxillary sinus. Visualized orbits: Orbital contents are intact. IMPRESSION: 1. . No evidence for neurosarcoidosis. No evidence of intracranial mass, acute/subacute infarct, or a bnormal enhancement. 2. Nonspecific white matter changes, likely related to small vessel ischemic disease
== END | disposition home or self-care (01) ==
LOC: RADMRIMAIN 18:28
PROVIDERS: ATTEND Psychiatry & Neurology Neurology
DX: R90.82 White matter disease, unspecified (principal); R51.0 Headache with orthostatic component, not elsewhere classified
CPT/HCPCS: 70553; A9585

== ENCOUNTER → 2023-09-21 | Outpatient (CLI) | payer BC, MEDICARE ==
--- NOTE | 2023-09-21 12:38 | MR ---
EXAMINATION TYPE: MR brain wo/w con DATE OF EXAM: 09/21/2023 11:27 AM CLINICAL INDICATION:Male, 63 years old with history of G97.83 INTRACRANIAL HYPOTENSION FOLLOWING LUMB AR C; PHH, Neurosarcoid, hx of CSF Hypotension, headache COMPARISON: 01/25/2023 TECHNIQUE: Multi planar, multi sequence imaging was performed through the brain including: T1, T2, In version recovery, susceptibility weighted imaging and gradient echo imaging and Diffusion weighted im aging. The patient was then given intravenous contrast and multi planar, T1 fat-saturation images wer e obtained. IV Contrast: 10 cc Gadavist FINDINGS: FINDINGS: Limited evaluation of the posterior cranial fossa due to metallic artifact. Posterior approach Ventri culostomy catheter with tip terminating near midline. Mild white matter changes around the tubing. Mi ld cerebral atrophy is questioned dilation of the ventricles. Scattered high T2 signal white matter c hanges throughout the brain. Diffusion-weighted imaging shows no evidence of restricted diffusion to suggest acute/subacute infarct. Intracranial arterial flow voids are maintained. Midline structures s how no abnormality. The susceptibility weighted images do not reveal any evidence for micro-hemorrhag e. After administration of gadolinium, no abnormal enhancement is seen. The bone marrow signal is within normal limits. Paranasal sinuses and mastoid air cells: Mild mucosal thickening right maxillary sinus. Visualized orbits: Orbital contents are intact. IMPRESSION: 1. No significant change from prior, no enhancement to suggest neurosarcoidosis. No evidence of intra cranial mass, acute/subacute infarct, or abnormal enhancement. 2. Nonspecific white matter changes, likely related to small vessel ischemic disease
== END | disposition home or self-care (01) ==
LOC: RADMRIMAIN 10:28
PROVIDERS: ATTEND Psychiatry & Neurology Neurology
DX: G97.8 Other intraoperative and postprocedural complications and disorders of nervous system (principal)
CPT/HCPCS: 70553; A9585

== ENCOUNTER → 2024-02-03 | Outpatient (CLI) | payer MEDICARE, BC ==
[2024-02-03 15:56] LABS: ALT 33 U/L (10-49); AST 35 U/L (14-35); Albumin 4.2 g/dL (3.8-4.9); Albumin/Globulin Ratio 1.62 Ratio (1.60-3.17); Alkaline Phosphatase 76 U/L (41-126); BUN/Creat Ratio 16.38 Ratio (12.00-20.00); Blood Urea Nitrogen 13.1 mg/dL (9.0-27.0); Calcium 9.7 mg/dL (8.7-10.3); Carbon Dioxide 26.9 mmol/L (21.6-31.8); Chloride 105 mmol/L (96-109); Chol/HDL Ratio 4.04 Ratio; Creatine Kinase 237 U/L (35-257); Globulin 2.6 g/dL (1.6-3.3); Glucose 87 mg/dL (70-110); Potassium 3.9 mmol/L (3.5-5.5); Sodium 143 mmol/L (135-145); Total Bilirubin 1.2 mg/dL (0.3-1.2); Total Protein 6.8 g/dL (6.2-8.2)
[2024-02-03 17:28] LABS: Basophils # (A) 0.03 X 10*3/uL (0.00-0.10); Basophils % (A) 0.4 %; Eosinophils % (A) 1.5 %; HGB 16.7 g/dL (13.0-17.0); Lymphocytes # (A) 2.17 X 10*3/uL (0.90-5.00); Lymphocytes % (A) 32.3 %; MCH 30.2 pg (27.0-32.0); MCHC 33.4 g/dL (32.0-37.0); MCV 90.4 FL (80.0-97.0); Mean Platelet Volume 10.1 FL (9.5-12.2); Monocytes # (A) 0.58 X 10*3/uL (0.20-1.00); Monocytes % (A) 8.6 %; NRBC Per 100 WBC 0 X 10*3/uL (0.00-0.01); Neutrophils # (A) 3.82 X 10*3/uL (1.80-7.70); Neutrophils % (A) 56.9 %; Platelet Count 127 X 10*3/uL (140-440); RBC 5.53 X 10*6/uL (4.40-5.60); RDW 13.8 % (11.5-14.5); WBC 6.72 X 10*3/uL (4.50-10.00)
== END | disposition home or self-care (01) ==
LOC: LABWHC1 08:52
PROVIDERS: ATTEND Family Medicine
DX: E78.5 Hyperlipidemia, unspecified (principal); E23.0 Hypopituitarism
CPT/HCPCS: 36415; 80053; 80061; 82550; 82671; 84403; 85025

== ENCOUNTER → 2024-05-15 | Outpatient (CLI) | payer MEDICARE, BC ==
[2024-05-15 15:52] LABS: ALT 40 U/L (10-49); AST 39 U/L (14-35); Albumin 4.2 g/dL (3.8-4.9); Albumin/Globulin Ratio 1.56 Ratio (1.60-3.17); Alkaline Phosphatase 68 U/L (41-126); Amylase 29 U/L (23-121); BUN/Creat Ratio 17.25 Ratio (12.00-20.00); Blood Urea Nitrogen 13.8 mg/dL (9.0-27.0); Calcium 9.5 mg/dL (8.7-10.3); Carbon Dioxide 26.9 mmol/L (21.6-31.8); Chloride 104 mmol/L (96-109); Chol/HDL Ratio 3.62 Ratio; Globulin 2.7 g/dL (1.6-3.3); Glucose 99 mg/dL (70-110); LDL Cholesterol,Calculated 75.4 mg/dL (0.0-131.0); Sodium 142 mmol/L (135-145); Total Protein 6.9 g/dL (6.2-8.2)
[2024-05-15 15:54] LABS: Basophils # (A) 0.04 X 10*3/uL (0.00-0.10); Basophils % (A) 0.5 %; Eosinophils # (A) 0.06 X 10*3/uL (0.04-0.35); Eosinophils % (A) 0.8 %; HCT 50.8 % (39.6-50.0); HGB 17.2 g/dL (13.0-17.0); Lymphocytes # (A) 2.01 X 10*3/uL (0.90-5.00); Lymphocytes % (A) 25.9 %; MCH 29.9 pg (27.0-32.0); MCHC 33.9 g/dL (32.0-37.0); MCV 88.3 FL (80.0-97.0); Mean Platelet Volume 10.1 FL (9.5-12.2); Monocytes # (A) 0.51 X 10*3/uL (0.20-1.00); Monocytes % (A) 6.6 %; NRBC Per 100 WBC 0 X 10*3/uL (0.00-0.01); Neutrophils # (A) 5.13 X 10*3/uL (1.80-7.70); Neutrophils % (A) 65.9 %; Platelet Count 144 X 10*3/uL (140-440); RBC 5.75 X 10*6/uL (4.40-5.60); RDW 13.6 % (11.5-14.5); WBC 7.77 X 10*3/uL (4.50-10.00)
== END | disposition home or self-care (01) ==
LOC: LABWHC1 11:02
PROVIDERS: ATTEND Family Medicine
DX: Z12.5 Encounter for screening for malignant neoplasm of prostate (principal); E11.9 Type 2 diabetes mellitus without complications; E23.0 Hypopituitarism
CPT/HCPCS: 36415; 80053; 80061; 82040; 82150; 82671; 84153; 84270; 84403; 85025

== ENCOUNTER → 2024-05-16 | Outpatient (CLI) | payer MEDICARE, BC ==
[2024-05-16 20:04] LABS: Microalbumin Creatinine Ratio <6 mg/g Cr (0-30)
== END | disposition home or self-care (01) ==
LOC: LABWHC1 08:29
PROVIDERS: ATTEND Family Medicine
DX: E11.9 Type 2 diabetes mellitus without complications (principal)
CPT/HCPCS: 82043; 82570

== ENCOUNTER → 2024-08-06 | Outpatient (CLI) | payer MEDICARE, BC ==
--- NOTE | 2024-08-06 18:46 | MR ---
EXAMINATION TYPE: MR brain wo/w con DATE OF EXAM: 08/06/2024 6:05 PM COMPARISON: 09/21/2023, 1922. 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 The patient was then given intravenous contrast and multi planar, T1 fat-saturation images wer e obtained. IV Contrast: 9 mL Gadobutrol FINDINGS: Limited evaluation diffusion weighted imaging of the posterior right scalp near to suscepti bility artifact. Ventriculostomy tubing tip terminating in the right ventricle near midline. I matter changes around the ventriculostomy tubing present. There are scattered white matter changes througho ut the brain noted. The dick-white junctions, ventricular system, basal cisterns appear unremarkable. Diffusion-weighted imaging shows no evidence of restricted diffusion to suggest acute/subacute infarct. Intracranial ar terial flow voids are maintained. Midline structures show no abnormality. The susceptibility weighted images do not reveal any evidence for micro-hemorrhage. After administration of gadolinium, no abnor mal enhancement is seen. No enhancement to suggest neurosarcoidosis. The bone marrow signal is within normal limits. Paranasal sinuses and mastoid air cells: Right maxillary sinus retention cyst measuring up to 20 mm. Visualized orbits: Orbital contents are intact. IMPRESSION: 1. No evidence of intracranial mass, acute/subacute infarct, or abnormal enhancement. 2. Ventriculostomy tubing changes. No evidence for hydrocephalus. 3. Nonspecific white matter changes, likely related to small vessel ischemic disease. [facility], , 08/06/2024 6:43 PM
== END | disposition home or self-care (01) ==
LOC: RADMRIMAIN 16:57
PROVIDERS: ATTEND Psychiatry & Neurology Neurology
DX: G25.5 Other chorea (principal); D86.81 Sarcoid meningitis; R90.82 White matter disease, unspecified
CPT/HCPCS: 70553; A9585